=== PATIENT | female | born 1960 | race Caucasian/White ===

== ENCOUNTER 2016-08-02 08:46 | Emergency (ER) | payer SELFPAY ==
[2016-08-02 08:54] VITALS: BMI 28.0
[2016-08-02 08:58] VITALS: TEMP 98.2; O2SAT 97
--- NOTE | 2016-08-02 09:20 | ED PDOC ---
Arrival/HPI - General Chief Complaint: Female Genitourinary Time Seen by Provider: 08/02/16 09:17 Historian: Patient - History of Present Illness Narrative History of Present Illness (Text): 08/02/16 09:17 This 56 yo female with pmh HTN, presents to this ED c/o dysuria, frequency, urgency x 3 days. Patient stated she has been taking AZO without significant relief of symptoms. Patient noted chills, and subjective mild fever yesterday. Patient took Tylenol yesterday. Denies hematuria, flank pain, vaginal discharge, sob, rash, vaginal bleeding, sick contact, recent travel, or abnormal gait. Time/Duration: Other (3 days) Context: Home Past Medical History - Provider Review Nursing Documentation Reviewed: Yes - Cardiac Hx Hypertension: Yes - Pulmonary Hx Asthma: Yes - Psychiatric Hx Depression: No Hx Emotional Abuse: No Hx Physical Abuse: No Hx Substance Use: No - Surgical History Hx Appendectomy: Yes - Suicidal Assessment Feels Threatened In Home Enviroment: No Family/Social History - Physician Review Nursing Documentation Reviewed: Yes Family/Social History: No Known Family HX Smoking Status: Never Smoked Hx Alcohol Use: No Hx Substance Use: No Allergies/Home Meds Allergies/Adverse Reactions: Allergies No Known Allergies Allergy (Verified 08/02/16 08:54) Home Medications: Home Meds Medication Instructions Recorded Confirmed Amlodipine Besylate/Benazepril 1 tab PO DAILY 07/23/12 08/02/16 [Amlodipine Besylate and Benazepril Hydrochlor] Metoprolol Succinate [Metoprolol 100 mg PO DAILY 07/23/12 08/02/16 Succinate Xl] Potassium Chloride 10 meq PO DAILY 07/23/12 08/02/16 Furosemide [Lasix] 0 mg PO DAILY 08/02/16 08/02/16 traMADol [Ultram] 0 mg PO TID 08/02/16 08/02/16 Review of Systems - Review of Systems Constitutional: Fevers, Other ((+) chills). absent: Fatigue, Weight Change, Night Sweats Eyes: Normal ENT: Normal Respiratory: Normal. absent: SOB, Cough Cardiovascular: Normal. absent: Chest Pain, Palpitations Gastrointestinal: Other (mild suprapubic pain). absent: Abdominal Pain, Nausea , Vomiting Genitourinary Female: Normal Musculoskeletal: Back Pain. absent: Arthralgias, Neck Pain, Joint Swelling, Myalgias Skin: Normal. absent: Rash Neurological: Normal Endocrine: Normal Hemo/Lymphatic: Normal Psychiatric: Normal Physical Exam Vital Signs Temp Pulse Resp BP Pulse Ox 08/02/16 10:26 79 18 158/79 H 97 08/02/16 08:57 98.2 F 83 16 163/84 H 97 Temperature: Afebrile Blood Pressure: Hypertensive Pulse: Regular Respiratory Rate: Normal Appearance: Positive for: Well-Appearing, Non-Toxic, Comfortable Pain Distress: None Mental Status: Positive for: Alert and Oriented X 3 - Systems Exam Head: Present: Atraumatic, Normocephalic Pupils: Present: PERRL Extroacular Muscles: Present: EOMI Conjunctiva: Present: Normal Mouth: Present: Moist Mucous Membranes Neck: Present: Normal Range of Motion, Trachea Midline. No: Meningeal Signs, MIDLINE TENDERNESS, Paraspinal Tenderness, Lymphadenopathy Respiratory/Chest: Present: Clear to Auscultation, Good Air Exchange. No: Respiratory Distress, Accessory Muscle Use, Wheezes, Retracting, Rhonchi Cardiovascular: Present: Regular Rate and Rhythm, Normal S1, S2. No: Murmurs Abdomen: Present: Normal Bowel Sounds. No: Tenderness, Distention, Peritoneal Signs, Rebound, Guarding Back: Present: Normal Inspection. No: CVA Tenderness Upper Extremity: Present: Normal Inspection. No: Cyanosis, Edema Lower Extremity: Present: Normal Inspection. No: Edema Neurological: Present: GCS=15, CN II-XII Intact, Speech Normal, Motor Func Grossly Intact, Normal Sensory Function, Normal Cerebellar Funct, Gait Normal Skin: Present: Warm, Dry, Normal Color. No: Rashes Psychiatric: Present: Alert, Oriented x 3 Medical Decision Making ED Course and Treatment: 08/02/16 10:28 Re-evaluation. Patient feels better. Discussed results and plan with patient who expresses understanding. All questions answered and there is agreement with the plan to discharge home with instructions. Patient stable for discharge. Return if symptoms persist or worsen Re-evaluation Time: 10:29 Reassessment Condition: Re-examined, Improved - Lab Interpretations Lab Results: Lab Results 08/02/16 09:22: Urine Color Yellow, Urine Appearance Sl cloudy, Urine pH 6.5, Ur Specific [employer] 1.010, Urine Protein 30 H, Urine Glucose (UA) Negative, Urine Ketones Negative, Urine Blood Moderate H, Urine Nitrate Negative, Urine Bilirubin Negative, Urine Urobilinogen 0.2, Ur Leukocyte Esterase Large H, Urine RBC 10 - 15, Urine WBC Tntc, Ur Epithelial Cells 6 - 8, Urine Bacteria Mod - Medication Orders Current Medication Orders: Discontinued Medications Nitrofurantoin Macrocrystals (Macrobid) 100 mg PO STAT STA Stop: 08/02/16 10:28 Last Admin: 08/02/16 10:37 Dose: 100 MG Disposition/Present on Arrival - Present on Arrival Any Indicators Present on Arrival: No History of DVT/PE: No History of Uncontrolled Diabetes: No Urinary Catheter: No History of Decub. Ulcer: No History Surgical Site Infection Following: None - Disposition Have Diagnosis and Disposition been Completed?: Yes Diagnosis: Acute cystitis Disposition: HOME/ ROUTINE Disposition Time: 10:29 Patient Plan: Discharge Condition: GOOD Discharge Instructions (ExitCare): Urinary Tract Infection in Women (ED) Additional Instructions: Call private doctor for follow up visit in 1-2 days. Take medication as instructed. Return to emergency if symptoms worsen. Continue taking AZO. Return to emergency if symptoms worsen. Review urine culture report in 3-5 days with your doctor. Prescriptions: Nitrofurantoin Macrocrystals [Macrobid] 100 mg PO BID #[id number] Referrals: Evan Heredia MD [Primary Care Provider] - Follow up with primary Forms: WORK NOTE
[2016-08-02 09:57] LABS: PH,URINE 6.5 (4.7-8.0); URINE BILIRUBIN NEGATIVE (NEGATIVE); URINE BLOOD MODERATE (NEGATIVE); URINE GLUCOSE (UA) NEGATIVE (NEGATIVE); URINE KETONE NEGATIVE (NEGATIVE); URINE LEUKOCYTE ESTERASE LARGE Leu/uL (NEGATIVE); URINE PROTEIN 30 mg/dL (<30 mg/dL); URINE UROBILINOGEN 0.2 E.U./dL (<1 E.U./dL)
[2016-08-02 09:59] LABS: URINE APPEARANCE SL CLOUDY (CLEAR); URINE COLOR YELLOW (YELLOW)
[2016-08-02 10:20] LABS: URINE WBC TNTC /hpf (0-6)
[2016-08-02 10:21] LABS: URINE BACTERIA MOD (NEG)
[2016-08-02 10:27] VITALS: BP 158/79; PULSE 79; RESP 18
== END 2016-08-02 10:43 | disposition home or self-care (01) ==
LOC: MERGE 08:46 → ED 08:46
DX: R39.15 Urgency of urination (principal); N30.00 Acute cystitis without hematuria; I10 Essential (primary) hypertension